=== PATIENT | female | born 1955 | race Caucasian/White ===

== ENCOUNTER 2017-06-20 06:55 | Inpatient (IN) | payer BC ==
[~2017-06-20 06:55] MED LIST: ACETAMINOPHEN 1,000 MG/100 ML BTL IV ONE; CELECOXIB 100 MG CAPSULE PO ONE; FAMOTIDINE 20MG TABLET PO ONE; MECLIZINE 25 MG TABLET PO ONE; METOCLOPRAMIDE 10 MG TABLET PO ONE; VANCOMYCIN HCL 1,000 MG in DEXTROSE 5 % IN WATER 250 ML IVPB ONE
[2017-06-20 07:46] LABS: ABO GROUP A
[2017-06-20 07:47] LABS: ANTIBODY SCREEN NEGATIVE (NEGATIVE); RH TYPE NEGATIVE
[2017-06-20] MEDS ORDERED: ONDANSETRON HCL IV 4 MG/2 ML VIAL IVP PRN (14:13)
[2017-06-20] MEDS ORDERED: ZOLPIDEM TARTRATE 5 MG TABLET PO PRN (14:13)
[2017-06-20] MEDS ORDERED: NALOXONE 0.4 MG/1 ML VIAL IVP PRN (14:13)
[2017-06-20] MEDS ORDERED: DIPHENHYDRAMINE HCL 25 MG CAPSULE PO PRN (14:13)
[2017-06-20] MEDS ORDERED: HYDROCODONE/APAP 10/325 TABLET PO PRN (14:13)
[2017-06-20] MEDS ORDERED: TRAMADOL HCL 50 MG TABLET PO PRN ×2 (14:13→18:06)
[2017-06-20] MEDS ORDERED: ACETAMINOPHEN 325 MG TAB PO PRN (14:13)
[2017-06-20] MEDS ORDERED: KETOROLAC 30 MG/ML VIAL IVP PRN ×2 (14:13)
[2017-06-20] MEDS ORDERED: AL HYDROX/MAG HYDROX 30ML UD PO PRN (14:13)
[2017-06-20] MEDS ORDERED: BISACODYL 10 MG SUPP RC PRN (14:13)
[2017-06-20] MEDS ORDERED: MAGNESIUM HYDROXIDE 30 ML UDC PO PRN (14:13)
--- NOTE | 2017-06-20 15:10 | Operative Note ---
DATE: 06/20/2017 PREOPERATIVE DIAGNOSIS: END-STAGE ARTHROSIS OF THE LEFT KNEE. POSTOPERATIVE DIAGNOSIS: END-STAGE ARTHROSIS OF THE LEFT KNEE. PROCEDURE: Cemented left total knee arthroplasty using [employer] Modesta II components with a size 4 Oxinium femur, size 3 stemmed tibial base plate, a 11 mm thick High-Crosslinked tibial insert, and a 32 all-plastic patella. STAFF SURGEON: DEMARCO SAAVEDRA M.D. ANESTHESIA: GENERAL. PREPARATION: CHLORAPREP. INDIVIDUAL CONSIDERATIONS: NONE. PROCEDURE: The patient was taken to the Operating Room and placed supine on the operating table. She had a successful induction of a spinal anesthetic. Her left lower extremity was prepped and draped in the usual fashion. The patient had a midline approach to the knee. The limb was elevated and the tourniquet was inflated to 250 mmHg. Sharp dissection was carried down through the skin and subcutaneous tissue. Small veins were coagulated with a Bovie. A medial arthrotomy was performed. The patella was everted and the knee was flexed. She had exposed bone in the medial compartment primarily. Moderate changes in the patellofemoral compartment. The lateral compartment looked good. The medial compartment was basically destroyed. The fat pad was resected, ACL was sacrificed, provisional anterior meniscectomies were performed, and the capsule was released from the medial proximal tibia. The initial femoral airplane pilot hole was then made freehand. The intramedullary femoral cutting jig was placed. It was cut in 7 degrees of valgus and set for rotation and secured with pins. The initial transverse cut was the made of 10 mm. The skin guide was placed in the anterior and posterior airplane pilot holes and we found that a size 4 would be appropriate. The anterior and posterior cuts followed by chamfer cuts were made , osteophytes removed, and a size 4 trial was placed and found to fit well. The tibia was brought forward and the remainder of the meniscal remnants were removed with a Bovie. The extra-articular tibial cutting jig was placed and it was cut in neutral with a 3 degree AP slope. Care was taken to adjust for rotation and flexion using the extra-articular alignment guide and maged landmarks. It was set for a 9 mm resection, keyed off the high lateral side, and secured with pins. With cutting the tibia, care was taken to preserve the PCL insertion on the tibia. After removing osteophytes, I was able to fit a size 3 baseplate, adjusted for rotation, and secured with pins. With a femoral trial and an 11 mm lipped trial, there was excellent motion and stability. Ligamentous balance, rotation, and alignment were thought to be normal. The femoral airplane pilot holes were impacted, and a triflange tibial stamp was impacted, and these trial components were removed. The patient had a 24 mm patella so I was able to do a patellar implant. I cut roughly 9 mm of bone off freehand, was able to fit a 32 and the three airplane pilot holes were drilled. The tourniquet was let down briefly to get bleeders posteriorly then placed back up again. The knee was then thoroughly and copiously irrigated out with pulsatile saline to remove any visual or palpable debris. Bony surfaces were then dried. A size 3 stem tibial baseplate was cemented into place, followed by impaction of an 11 mm lipped Highly Crosslinked tibial insert, followed by cementing in a size 4 Oxinium femur, followed by cementing in a 32 mm patella. Implant surfaces were compressed, excess cement was removed, and after the cement had set, there was excellent motion and stability. Ligamentous balance, rotation alignment, and patellofemoral tracking were normal. No lateral release was required. Again, hemostasis was obtained. After irrigation, the capsule was closed with a running #2 Quill, subcut was closed in layers with running #0 Quill, and the skin was closed with liseth. Prior to closure, I infiltrated the skin and periosteum with 30 mL of 0.50% Marcaine with Epinephrine. I then injected the knee, after closure, with 30 mL of saline mixed with a gram of Tranexamic Acid. She did receive a gram of Tranexamic Acid preoperatively. There were no complications. She was taken back to the Recovery Room in good condition. cc: Dr. Barbara Irby JOB NUMBER: [id number] [id number]
[2017-06-20] MEDS ORDERED: HYDROCORTISONE 100MG/VIAL IVP ONE (15:19)
[2017-06-20] MEDS ORDERED: PROPOFOL 10 MG/ML VIAL IV ONE (15:19)
[2017-06-20] MEDS ORDERED: SEVOFLURANE 250 ML INH ONE (15:19)
[2017-06-20] MEDS ORDERED: HYDROMORPHONE HCL 2 MG/ML VIAL IV ONE (15:19)
[2017-06-20] MEDS ORDERED: EPHEDRINE SULFATE 50 MG/ML ML IV ONE (15:19)
[2017-06-20] MEDS ORDERED: *PACU ONLY* KETAMINE HCL 10 MG/ML (20ML) VIAL IV ONE (15:19)
[2017-06-20] MEDS ORDERED: TRANEXAMIC ACID 1,000 MG/10 ML ML IV ONE ×2 (15:25→15:27)
[2017-06-20] MEDS ORDERED: 0.9 % SODIUM CHLORIDE 10 ML VIAL IVP ONE (15:27)
--- NOTE | 2017-06-20 15:51 | Rehab Evaluation ---
Patient Information - Patient Information Diagnosis: DJD L Knee Ordered Treatment: PT Evaluate and Treat Status: Initial Evaluation Surgery: Yes (L TKA) Date of Surgery: 06/20/17 Past Medical/Surgical Hx: PAST MEDICAL/SURGICAL HISTORY Past Surgical History right tib fib tubal ligation tubal preg with tube removal valdez right ankle fusion bilat CTR left elbow sx 2006 heart cath c scope EGD bilat cats RTKA ablation uterine appy breast bx grafts left lower leg and ankle left knee scope right knee scope PMH - Respiratory Hx Respiratory Disorders Yes Hx Asthma Yes: flares up spring and fall corn pollen inhaler prn Hx Chronic Obstructive Yes Pulmonary Disease (COPD) Hx Sleep Apnea Yes Hx of CPAP Yes: bipap PMH - Cardiovascular Hx Cardiovascular Disorders Yes Hx Abnormal EKG Yes Hx Cardiac Catheterization Yes: 2006 Hx Deep Vein Thrombosis Yes: left leg x's 2 2015 Hx Hypertension denies Hx Irregular Heartbeat Yes: tachy on meds controlled Hx Coronary Artery Disease Yes: blockage back of heart inoperable Exercise Tolerance Poor PMH - Neuro Hx Neurological Disorders Yes Hx Dizziness Yes: occassionally/ vertigo Hx Headaches Yes: related to stress Hx Weakness Yes: legs Hx of Neuromuscular Disease Yes: questionable parkinsons PMH - GI Hx Gastrointestinal Disorders Yes PMH - Hx Genitourinary Disorders Yes Hx Kidney Stones Yes: hx of Hx Renal Disease Yes: from meds renal failure PMH - Endocrine Hx Endocrine Disorders Yes Hx Diabetes Yes: over 20 years Hx of IDDM Yes Comment: blood sugars 96-125 a few lows PMH - Musculoskeletal Hx Musculoskeletal Disorders Yes Hx Arthritis Yes: RA PMH - Psych Hx Psychiatric Problems No Hx Depression Yes PMH - Hematology/Oncology Hx Hematology/Oncology Yes Disorders Hx Bruising Yes Hx Cancer Yes: cervical cancer Hx Clotting Problems Yes: in past Social History: Detail (The patient lives in a 2 story home with a ramp to enter. The patient's bedroom, kitchen, and bathroom are on the main level, and she said she does not use the second level at all. The patient has a walk-in shower with a bench, hand-held shower head, and grab bars. The patient uses an elevated toilet seat with grab bars. The patient will be using a 4WW for ambulation and continued use once discharged home.) Precautions: [place] - Time With Patient Total Time Spent With Patient (Min): 30 Treatment Procedures: Detail (PT Initial Evaluation) Subjective Information - Subjective Information Per Patient (The patient has no complaints of dizziness and nausea.) Objective Data - Pain Pain Present: No Pain Intensity: 0 Pain Scale Used: Numeric (1 - 10) - Mental Status Patient Orientation: Oriented x3 - ROM Within normal limits (R Knee - WNL L Knee - Not formally assessed, but limited as expected s/p TKA) - Strength/Tone Not within normal limits (L Knee - Not formally assessed, but displayed adequate strength for ambulation) - Bed Mobility Independent (The patient was independent with use of bed railing for supine to sit. The patient was independent with scooting in bed.) - Transfers Independent (The patient was independent with sit to stand and stand to sit.) - Balance Balance Sitting: Good (No loss of balance while sitting at EOB) Balance Standing: Good (No loss of balance with static standing and no loss of balance with gait.) - Gait Detail (The patient used a 4WW and WBAT on L side. She was able to ambulate from her bed to the middle of hallway and back (25 feet total) with CGA x1. Showed no loss of balance with gait. However, patient did have to lean on to her walker mcfp through her walk to due to increased low back pain (said she has been dealing with it for years). Had no complaints of knee pain during or after ambulation.) Therapy Assessment - Therapy Assessment Detail (The patient demonstrated independence with bed mobility and transfers. The patient had no pain with gait. The patient showed deficits in strength and ROM as expected s/p L TKA.) Patient Education - Patient Education Teaching Topic: Exercise/Activity (Demonstrated/Understood quad sets, glut.sets , ankle pumps, hamstring sets, and straight leg raise.) Response: Return Demonstration, Verbalize Understanding Teaching Method: Discussion Teaching Recipient: Patient Barriers To Learning: None Problem List - Problem List Physical Therapy Problem List: Detail (1) Decreased ROM and strength as expected s/p TKA 2) Altered gait pattern as to be expected s/p TKA) Goals - Goals Physical Therapy Goals: 1) The patient will be independent in HEP prior to discharge to increase ROM and strength for functional mobility once discharged home. 2) The patient will be able to ambulate household distances with supervision for safe discharge to home environment Prognosis - Prognosis Good Plan - Plan Physical Therapy Plan: The patient will be seen 1-2x/day M-F untill all inpatient PT goals are achieved.
[2017-06-20] MEDS: POTASSIUM CHLORIDE/D5-0.9%NACL 20 MEQ/1,000 ML BAG IV SCH ×2 (16:01→23:54)
[2017-06-20] MEDS ORDERED: NOVOLOG SC SCH (17:15)
[2017-06-20] MEDS: XELJANZ 5 MG PO SCH ×2 (17:44→21:31)
[2017-06-20] MEDS: ELIQUIS 5 MG PO SCH ×2 (17:45→21:30)
[2017-06-20] MEDS: ATENOLOL 50 MG PO SCH ×2 (17:46→21:30)
[2017-06-20] MEDS: VITAMIN D 5000 UNIT PO SCH ×2 (17:46→21:31)
[2017-06-20] MEDS: VITAMIN E 400 UNIT PO SCH ×2 (17:46→21:31)
[2017-06-20] MEDS: VANCOMYCIN HCL 1,000 MG in DEXTROSE 5 % IN WATER 250 ML IVPB SCH ×2 (20:39)
[2017-06-20] MEDS ORDERED: TOUJEO SC SCH (22:00)
[2017-06-20] MEDS ORDERED: SINEMET PO SCH (22:00)
[2017-06-20] MEDS: DOCUSATE SODIUM 100 MG CAPSULE PO SCH (22:07)
[2017-06-20] MEDS: PATIENT OWN MED: ROPINIROLE 0.5 MG PO SCH ×2 (22:09→22:13)
[2017-06-20] MEDS: HYDROMORPHONE HCL 2 MG/ML VIAL IM PRN (23:49)
[2017-06-21] MEDS: POTASSIUM CHLORIDE/D5-0.9%NACL 20 MEQ/1,000 ML BAG IV SCH (06:08)
[2017-06-21 06:41] LABS: HEMATOCRIT 27.5 % (35.0-47.0); HEMOGLOBIN 8.6 gm/dl (11.6-16.0)
[2017-06-21 06:56] LABS: BLOOD UREA NITROGEN 16 mg/dL (8-23); CREATININE 0.9 mg/dL (0.5-0.9); EST GLOMERULAR FILTRATION RATE > 60 mL/min; GLUCOSE,RANDOM 134 mg/dL (74-109)
[2017-06-21] MEDS: NOVOLOG SC SCH ×2 (08:02→12:04)
[2017-06-21] MEDS: VANCOMYCIN HCL 1,000 MG in DEXTROSE 5 % IN WATER 250 ML IVPB SCH ×2 (08:03)
[2017-06-21] MEDS: INVOKANA 300 MG PO SCH ×2 (08:07→09:15)
[2017-06-21] MEDS: FERROUS SULFATE 325 MG TAB PO SCH ×2 (09:14→09:34)
[2017-06-21] MEDS: DOCUSATE SODIUM 100 MG CAPSULE PO SCH ×2 (09:14→09:34)
[2017-06-21] MEDS: ELIQUIS 5 MG PO SCH (09:15)
[2017-06-21] MEDS: XELJANZ 5 MG PO SCH (09:20)
[2017-06-21] MEDS: ATENOLOL 50 MG PO SCH (09:29)
[2017-06-21] MEDS ORDERED: POTASSIUM 99 MG PO SCH (10:00)
[2017-06-21] MEDS ORDERED: CARDIZEM 180 MG PO SCH (10:00)
[2017-06-21] MEDS ORDERED: PATIENT OWN MED: PREDNISONE 5 MG PO SCH (10:00)
[2017-06-21] MEDS ORDERED: DIOVAN 160 MG PO SCH (10:00)
[2017-06-21] MEDS ORDERED: TRULICITY SC SCH (10:00)
[2017-06-21] MEDS ORDERED: PREDNISONE 1 MG PO SCH (10:00)
--- NOTE | 2017-06-21 10:40 | Physical Therapy Tx Note ---
Physical Therapy Tx Note - Treatment Note Tolerated: Good Total Time Spent With Patient: 20 Physical Therapy Tx Note: Detail (The patient was up in chair and had completed OT. The patient ambulated with 4 wheeled walker WBAT L LE independently a distance of 108 feet x 1 ( with one rest period ). The patient leaned forward on her walker, resting forearms on handles due to lower back pain. The patient was able to walk with an upright trunk. The patient's HEP was reviewed . The patient also completed seated heel slides x 5 reps . Knee flexion was measured as 58 degrees. The patient refused to ambulate on stairs, stating she does not do stairs. The patient has a ramp at home. The patient has completed all inpatient goals at this time and is discharged from inpatient PT.) Physical Therapy Problem List: Detail (1) Decreased ROM and strength as expected s/p TKA 2) Altered gait pattern as to be expected s/p TKA) Physical Therapy Goals: 1) The patient will be independent in HEP prior to discharge to increase ROM and strength for functional mobility once discharged home. MET. 2) The patient will be able to ambulate household distances with supervision for safe discharge to home environment. MET Physical Therapy Plan: Patient is discharged from inpatient PT due to all inpatient goals have been met Patient is to receive home PT.
--- NOTE | 2017-06-21 11:18 | Rehab Evaluation ---
Patient Information - Patient Information Diagnosis: DJD L Knee Ordered Treatment: OT Evaluate and Treat Status: Initial Evaluation Surgery: Yes (L TKA) Date of Surgery: 06/20/17 Past Medical/Surgical Hx: PAST MEDICAL/SURGICAL HISTORY Past Surgical History right tib fib tubal ligation tubal preg with tube removal valdez right ankle fusion bilat CTR left elbow sx 2006 heart cath c scope EGD bilat cats RTKA ablation uterine appy breast bx grafts left lower leg and ankle left knee scope right knee scope PMH - Respiratory Hx Respiratory Disorders Yes Hx Asthma Yes: flares up spring and fall corn pollen inhaler prn Hx Chronic Obstructive Yes Pulmonary Disease (COPD) Hx Sleep Apnea Yes Hx of CPAP Yes: bipap PMH - Cardiovascular Hx Cardiovascular Disorders Yes Hx Abnormal EKG Yes Hx Cardiac Catheterization Yes: 2006 Hx Deep Vein Thrombosis Yes: left leg x's 2 2015 Hx Hypertension denies Hx Irregular Heartbeat Yes: tachy on meds controlled Hx Coronary Artery Disease Yes: blockage back of heart inoperable Exercise Tolerance Poor PMH - Neuro Hx Neurological Disorders Yes Hx Dizziness Yes: occassionally/ vertigo Hx Headaches Yes: related to stress Hx Weakness Yes: legs Hx of Neuromuscular Disease Yes: questionable parkinsons PMH - GI Hx Gastrointestinal Disorders Yes PMH - Hx Genitourinary Disorders Yes Hx Kidney Stones Yes: hx of Hx Renal Disease Yes: from meds renal failure PMH - Endocrine Hx Endocrine Disorders Yes Hx Diabetes Yes: over 20 years Hx of IDDM Yes Comment: blood sugars 96-125 a few lows PMH - Musculoskeletal Hx Musculoskeletal Disorders Yes Hx Arthritis Yes: RA PMH - Psych Hx Psychiatric Problems No Hx Depression Yes PMH - Hematology/Oncology Hx Hematology/Oncology Yes Disorders Hx Bruising Yes Hx Cancer Yes: cervical cancer Hx Clotting Problems Yes: in past Premorbid Status: Detail (Pt reports she lives with spouse in a 1 story house with basement although she stays on the main level. She has a ramp at the entrance. She has a walk in tub and a walk in shower, both with seat and an elevated toilet with grab bars. She is Ind with self cares and she shares laundry and meal prep with spouse. She has assistance 1 x week for home mgmt tasks. She has a long shoe horn, sock aid, multiple reachers, standard wheelchair, electric wheelchair, hospital bed, 4 wheeled walker, crutches and multiple canes.) Precautions: [place] - Time With Patient Total Time Spent With Patient (Min): 45 Treatment Procedures: Detail (OT eval low complexity) Subjective Information - Subjective Information Per Patient Objective Data - Pain Pain Present: Yes (07/22) - Mental Status Patient Orientation: Oriented x3 - Visual Perception Appears within normal limits for therapeutic activities - ROM Within normal limits (Charles UE AROM functional) - Strength/Tone Within normal limits (Charles UE strength functional) - Coordination Appears within normal limits for therapeutic activities - Bed Mobility Independent (Ind with supine to sit.) - Transfers Independent (Ind with sit to stand from EOB and chair.) - Balance Balance Sitting: Good Balance Standing: Good - Sensation Intact - Gait Detail (Pt ambulating in room with 4 wheeled walker Indly.) - ADL's/IADL's Detail (Pt educated and demonstrates learning of modified LE dressing technique. She required min assist with left shoe but reports she has a long shoe horn at home. Pt able to complete total body dressing, grooming and hygiene tasks Indly.) Therapy Assessment - Therapy Assessment Detail (Pt is safe and Ind with self cares and functional mobility.) Problem List - Problem List Physical Therapy Problem List: Detail (1) Decreased ROM and strength as expected s/p TKA 2) Altered gait pattern as to be expected s/p TKA) Occupational Therapy Problem List: Detail (No current OT problems identified.) Goals - Goals Physical Therapy Goals: 1) The patient will be independent in HEP prior to discharge to increase ROM and strength for functional mobility once discharged home. MET. 2) The patient will be able to ambulate household distances with supervision for safe discharge to home environment. MET Occupational Therapy Goals: No current OT goals identified. Prognosis - Prognosis Good Plan - Plan Physical Therapy Plan: Patient is discharged from inpatient PT due to all inpatient goals have been met Patient is to receive home PT. Occupational Therapy Plan: No further IP OT recommended. Thank you for this referral.
[2017-06-21] MEDS: HYDROMORPHONE HCL 2 MG/ML VIAL IM PRN (12:13)
--- NOTE | 2017-06-21 22:06 | Discharge Summary ---
DATE OF ADMISSION: 06/20/2017 DATE OF DISCHARGE: 06/21/2017 DATE OF SURGERY: 06/20/2017 HISTORY: Cyndy is a delightful 62-year-old female who presents with end- stage arthrosis of her left knee. She was admitted after a left total knee arthroplasty. Postoperatively, she did phenomenally well. Her hospital course was unremarkable. Her discharge hemoglobin was 8.6. She was asymptomatic from the anemia. DISCHARGE INSTRUCTIONS: The plan is to discharge her home in the care of her family. Home PT and Visiting Nurse have been arranged. She will be given Dilaudid supplemented with Ultram for pain. She normally takes Eliquis and she will continue with her regular dose chronically. That will also cover her for DVT prophylaxis. She will continue her medications at home and she will follow- up in my office in four weeks. FINAL DIAGNOSIS/PRIMARY DIAGNOSIS: END-STAGE ARTHROSIS OF THE LEFT KNEE. SECONDARY DIAGNOSES: 1. OPERATIVE BLOOD LOSS ANEMIA. 2. TYPE II DIABETES, STABLE. 3. HYPERTENSION, STABLE. 4. RESPIRATORY INSUFFICIENCY SECONDARY TO OBESITY, STABLE. OPERATIONS AND PROCEDURES: CEMENTED LEFT TOTAL KNEE ARTHROPLASTY. DISCHARGE CONDITION: Good. cc: Dr. Barbara Irby JOB NUMBER: [id number] MTDD
== END 2017-06-21 15:00 | disposition home or self-care (01) | DRG 470 ==
LOC: MEDSURG 06:55
PROVIDERS: ADMIT Orthopaedic Surgery; ATTEND Orthopaedic Surgery
PROC: 0SRD069 Replacement of Left Knee Joint with Oxidized Zirconium on Polyethylene Synthetic Substitute, Cemented, Open Approach (ICD-10-PCS; principal; 2017-06-20 09:00)
DX: M17.12 Unilateral primary osteoarthritis, left knee (principal); E11.9 Type 2 diabetes mellitus without complications; Z79.4 Long term (current) use of insulin; E78.00 Pure hypercholesterolemia, unspecified; Z79.01 Long term (current) use of anticoagulants; I25.10 Atherosclerotic heart disease of native coronary artery without angina pectoris; I10 Essential (primary) hypertension
CPT/HCPCS: 36416; 80048; 82948; 85014; 85018; 86850; 86900; 86901; 97165; 97530; J1720; J3480; J7060